=== PATIENT | female | born 1975 | race Caucasian/White ===

== ENCOUNTER 2024-04-12 11:05 | Emergency (ER) | payer OTHER, SELFPAY ==
[2024-04-12 11:26] VITALS: BP 118/79; PULSE 90; RESP 16; TEMP 37; O2SAT 99
--- NOTE | 2024-04-12 11:33 | ED.EYEPROB ---
HPI - Eye Problem General Chief complaint: Eye Problems Stated complaint: left eyelids swollen Time Seen by Provider: 04/12/24 11:33 Source: patient Mode of arrival: ambulatory Limitations: no limitations History of Present Illness HPI Narrative: 48-year-old female presents for complaint of left upper eyelid redness, swelling, and drainage. Endorses a stye to the upper lid for about 5 days. Started draining today. She states she woke with swelling around the lower eye, the eye was not swollen shut. Denies foreign body, injury, vision changes or photophobia. She has been applying warm compresses to the site. chief complaint: eye pain Related Data Allergies Allergy/AdvReac Type Severity Reaction Status Date / Time No Known Allergies Allergy Unverified 01/30/17 12:51 Review of Systems Review of Systems: CONSTITUTIONAL: Denies body aches, fever, chills EYES:Endorses swelling, redness and pain to left upper eye lid; Denies visual changes, FB sensation, photophobia ENT: Denies rhinorrhea, congestion, sore throat, or otalgia. CARDIOVASCULAR: Denies chest pain, palpitations RESPIRATORY: Denies cough or dyspnea. SKIN: Denies rash, itching, or wounds. MUSCULOSKELETAL: Denies back pain, joint pain, or myalgia. NEUROLOGIC: Denies headache, numbness, tingling, or weakness. All systems reviewed & are unremarkable except as noted in HPI and below PMFSH Social History Social History Smoking status: Former smoker Second hand tobacco smoke exposure: No Smoking end date: 10/26/17 Substance use type: marijuana Comments At time of signature, I have reviewed and agree with nursing past medical, surgical, social and family history unless otherwise noted. Please see nursing chart for further information. There is no relevant family history pertinent to the presenting complaint Exam Narrative: GENERAL: Well-appearing HEAD: Normocephalic, atraumatic. EYES: right upper eye lid swelling/redness c/w stye; purulent drainage noted from the lesion. Mild swelling to lower orbit, eye is not occluded. No conjunctival injection. PERRLA EOMI. Lid eversion shows no foreign body ENT: Mucous membranes pink and moist. No rhinorrhea. TMs normal bilaterally. Throat normal. Uvula midline. ABDOMEN: Soft, nontender, nondistended SKIN: Warm, dry, no rash. Normal skin turgor. NEURO: No focal deficits. Alert and oriented x3 PSYCH: Normal affect. Course Course Emergency Course: Patient is aware of diagnosis, understands and agrees to treatment plan. Anticipatory guidance given. Patient agrees to follow-up as directed and is aware of reasons to seek care at the emergency department. Portions of this record may have been created with voice recognition software Level of Care: Express Care Visit Vital Signs Vital signs: Vital Signs Temperature 98.6 F 04/12/24 11:26 Pulse Rate 90 04/12/24 11:26 Respiratory Rate 16 04/12/24 11:26 Blood Pressure 118/79 04/12/24 11:26 Pulse Oximetry 99 04/12/24 11:26 Oxygen Delivery Room Air 04/12/24 11:26 Temperature 98.6 F 04/12/24 11:26 Pulse Rate 90 04/12/24 11:26 Respiratory Rate 16 04/12/24 11:26 Blood Pressure 118/79 04/12/24 11:26 Pulse Oximetry 99 04/12/24 11:26 Oxygen Delivery Room Air 04/12/24 11:26 MDM - Eye Problem MDM Narrative Medical decision making narrative: Discussed physical exam findings, left upper eye stye. Pt will fill Rx if she develops cellulitis. Advised supportive measures and signs/symptoms to go to the ER. Pt is appropriate for outpt treatment and f/u. Differential Diagnosis Differential diagnosis: Likely corneal abrasion, conjunctivitis, acute iritis and other Discharge Plan Discharge Clinical Impression: External hordeolum Patient Disposition: Home, Self-Care Condition: Stable Instructions: Antibiotic Form[employer]y (ED) Additional
== END 2024-04-12 11:47 | disposition home or self-care (01) ==
PROVIDERS: Emergency Provider Nurse Practitioner Family; PCP Family Medicine Adolescent Medicine
DX: H00.014 Hordeolum externum left upper eyelid (principal); Z87.891 Personal history of nicotine dependence; F12.90 Cannabis use, unspecified, uncomplicated
CPT/HCPCS: 99213; G0463